=== PATIENT | female | born 2000 | race Caucasian/White ===

== ENCOUNTER 2022-01-09 21:02 | Emergency (ER) | payer OTHER, SELFPAY ==
[2022-01-09] VITALS (16 sets, daily range): BP systolic 107–114; BP diastolic 50–74; PULSE 81–119; RESP 13–23; TEMP 38.4; O2SAT 96–100
--- NOTE | ~2022-01-09 | XR_ITS ---
EXAMINATION: XR chest 1V Exam Date/Time: 01/09/2022 22:06 CDT HISTORY: Fever, eval for PNA Comparison: None available. RESULT: Lines, tubes, and devices: None. Lungs and pleura: Clear. Cardiomediastinal silhouette: Normal. Other: No acute osseous or upper abdominal finding. IMPRESSION: No acute cardiopulmonary process. Reviewed, dictated and finalized at location K.
--- NOTE | ~2022-01-09 | CT_ITS ---
EXAMINATION: CT brain wo con DATE: 01/09/2022 22:07 INDICATION: AMS, eval for intracranial mass . TECHNIQUE: Computed tomography (CT) of the head was performed without intravenous contrast. The mA wa s adjusted according to patient size. Iterative reconstruction technique was employed. The dose-lengt h product was 605.33 mGy-cm. COMPARISON: None FINDINGS: No acute intracranial hemorrhage or extra-axial fluid collection. No hydrocephalus, mass, or herniation. No acute ischemic infarct. Unremarkable dural venous sinus attenuation. No acute osseous abnormality. The aerated spaces are clear. IMPRESSION: No acute intracranial process. Reviewed, dictated and finalized at location K.
--- NOTE | 2022-01-09 21:49 | ECG_ITS ---
Measurements Intervals [place] Rate: 78 P: 52 GA: 199 QRS: 82 QRSD: 88 T: 38 QT: 370 QTc: 423 Interpretive Statements SINUS RHYTHM NONSPECIFIC T-WAVE ABNORMALITY Electronically Signed On 01-10-2022 11:38:44 CDT by Richard Arroyo M.D.
--- NOTE | 2022-01-09 21:56 | ED.FEVER ---
HPI - Fever General Chief Complaint: Fever Stated Complaint: Fever, confusion Time Seen by Provider: 01/09/22 21:33 History of Present Illness HPI Narrative: HPI limited due to altered mental status This is a 21-year-old female who presents to the emergency department for altered mental status and fever. She is known COVID-positive, per chart review patient's friend noted that she was confused and febrile. Patient states that she is in the hospital. But is unable to answer her other questions. Related Data Allergies Allergy/AdvReac Type Severity Reaction Status Date / Time cefdinir Allergy Rash Verified 01/09/22 23:07 Review of Systems Review of Systems: Review systems limited by altered mental status CONSTITUTIONAL: Fever, confusion NEUROLOGIC:headache Exam Narrative: GENERAL: Patient warm to touch, tearful, intermittent full body jerks noted HEAD: Normocephalic, atraumatic. EYES: PERRLA and EOMI. ENT: Nares clear, no rhinorrhea or epistaxis. Mucous membranes moist. Oropharynx without tonsillar hypertrophy exudate or other lesions. NECK: Supple. No adenopathy or masses. No carotid bruits or JVD, head impulse test negative CHEST: Clear to auscultation. No respiratory distress. No wheezes rales or rhonchi HEART: Tachycardic, regular rhythm no murmur heard. Normal peripheral pulses. ABDOMEN: Soft, nontender, nondistended, normal active bowel sounds. EXTREMITIES: Normal range of motion. No edema. SKIN: Warm, dry, no rash. NEURO: No focal deficits. Alert, unable to answer orientation questions Course Reevaluation(s) Reevaluation #1: 23:30 - Reassessed patient. She is now A&Ox4. She now states that she has had some cough over the past day and felt lightheaded. ThR last thing she remembers is speaking with her classmates earlier this afternoon. She now feels much better. She denies headache, neck stiffness, photophobia, nausea, or abdominal pain. Given the patient's significant improvement with fluids alone and otherwise unremarkable labs, I will hold antibiotics. My concern for meningitis is reduced. The patient is positive for COVID-19. I suspect her symptoms are related to that. We will repeat a dose of IV fluids and reassess. Reevaluation #2: 01:35 -reassessed patient. She states she feels significantly better. Patient is noted ambulating in the department with a steady gait. Repeat vital signs improved. Tachycardia resolved. Fever resolved. Will discharge home with primary care follow-up. Discussed findings and recommendations with the patient, who voiced understanding and is comfortable with the plan. Discussed return emergency precautions including signs/symptoms of respiratory distress and sepsis. Vital Signs Vital signs: Vital Signs Temperature 101.1 F H 01/09/22 21:08 Pulse Rate 119 H 01/09/22 21:08 Respiratory Rate 16 01/09/22 21:08 Blood Pressure 114/74 01/09/22 21:08 Pulse Oximetry 100 01/09/22 21:08 Temperature 98.8 F 01/10/22 00:59 Pulse Rate 90 01/10/22 00:56 Respiratory Rate 15 01/10/22 00:56 Blood Pressure 107/50 L 01/09/22 23:46 Pulse Oximetry 99 01/10/22 00:56 MDM - Fever MDM Narrative Medical decision making narrative: Plan: Sepsis protocol, antibiotics for meningitis, imaging, lumbar puncture, reassess Differential Diagnosis Differential diagnosis: Likely community acquired pneumonia, sepsis, influenza and other (COVID, meningitis, other) Lab Data Result diagrams: 01/09/22 23:00 01/09/22 23:00 Labs: Lab Results 01/09/22 01/09/22 01/09/22 Range/Units 23:00 23:00 23:00 WBC 4.4 L (4.5-10.0) K/mm3 RBC 4.39 (4.2-5.4) M/mm3 Hgb 12.7 (12.0-15.0) g/dL Hct 38.6 (37.0-47.0) % MCV 87.9 (80-100) fl MCH 28.9 (26-34) pg MCHC 32.9 (32-36) g/dl RDW 12.0 (11.5-14.5) % Plt Count 179 (150-375) k/mm3 MPV 10.5 H (7.4-10.4) fl Immature Gran % (Auto) 0.5 (0-0.5) % Neut
[2022-01-09] MEDS: LACTATED RINGERS 1,000 ML 999 ML IV CONT (23:06)
[2022-01-09 23:16] LABS: Basophils Percent Auto 0.7 % (0.2-1.2); Eosinophils Absolute Auto 0.1 K/mm3 (0-0.3); Eosinophils Percent Auto 1.1 % (0-4.4); Hematocrit 38.6 % (37.0-47.0); Hemoglobin 12.7 g/dL (12.0-15.0); Immature Granulocyte Absolute 0.02 K/mm3 (0.00-0.031); Immature Granulocyte Percent A 0.5 % (0-0.5); Lymphocytes Absolute Auto 0.57 K/mm3 (0.9-3.2); Lymphocytes Percent Auto 12.9 % (18.3-44.2); Mean Corpuscular HGB Conc 32.9 g/dl (32-36); Mean Corpuscular Hemoglobin 28.9 pg (26-34); Mean Corpuscular Volume 87.9 fl (80-100); Mean Platelet Volume 10.5 fl (7.4-10.4); Monocytes Absolute Auto 0.5 K/mm3 (0.1-0.6); Monocytes Percent Auto 10.9 % (2.6-8.5); Neutrophils Absolute Auto 3.3 K/mm3 (1.3-6.7); Neutrophils Percent Auto 73.9 % (45.5-73.1); Platelet Count Result 179 k/mm3 (150-375); Red Blood Count 4.39 M/mm3 (4.2-5.4); White Blood Count 4.4 K/mm3 (4.5-10.0)
[2022-01-09 23:29] LABS: Lactic Acid Reflex 0.7 mmol/L (0.7-2.0)
[2022-01-09 23:33] LABS: Alanine Aminotransferase 12 U/L (6-35); Albumin Level 4.5 g/dL (3.5-5.1); Alkaline Phosphatase 59 U/L (38-126); Anion Gap 11 mmol/L (8-16); Aspartate Amino Transferase 20 U/L (14-36); Bilirubin,Total 0.6 mg/dL (0.2-1.3); Blood Urea Nitrogen 13 mg/dL (7-17); CRP < 0.5 mg/dL (<1.0); Calcium 8.8 mg/dL (8.4-10.2); Carbon Dioxide 26 mmol/L (22-30); Chloride 101 mmol/L (98-107); Estimated CRCL calculation 88 ml/min; Estimated Glomerular Filt Rate > 60; Glucose 93 mg/dL (65-110); Sodium 138 mmol/L (137-145)
[2022-01-09 23:52] LABS: Influenza A QL RT-PCR Negative (Negative); Influenza B QL RT-PCR Negative (Negative); SARS-CoV-2 RNA PCR Positive
[2022-01-10 00:28] LABS: Appearance Urine Clear (Clear); Bilirubin Urine Negative (Negative); Blood Urine Negative (Negative); Color Urine Yellow (Yellow); Glucose Urine UA Negative (Negative); Ketones Urine Trace mg/dL (Negative); Leukocyte Esterase Ur 2+ LEU/UL (Negative); Nitrate Urine Negative (Negative); Protein Urine Negative (Negative); Urobilinogen Urine 0.2 mg/dL (<2.0)
[2022-01-10 00:34] LABS: Bacteria Urine Trace /hpf; Mucus Urine Rare /lpf; RBC Urine 0-2 /hpf (0-2); Squamous Epithelial Cell Urine Moderate /hpf (Few)
[2022-01-10 00:37] LABS: Add Urine Microscopic? YES
[2022-01-10 00:56] VITALS: PULSE 90; RESP 15; TEMP 37.1; O2SAT 99
[2022-01-10] MEDS: LACTATED RINGERS 1,000 ML 999 ML IV CONT (00:57)
[2022-01-10 00:59] VITALS: TEMP 37.1
[2022-01-10 02:20] VITALS: BP 102/69; PULSE 79; RESP 13; O2SAT 100
--- NOTE | 2022-01-10 02:33 | PC.NURSE ---
0210- RN called [facility] @[phone] to notify them that pt is being discharged and to please fiber picker at the ER entrance.
== END 2022-01-10 02:20 | disposition home or self-care (01) ==
PROVIDERS: Emergency Provider Preventive Medicine Aerospace Medicine
DX: U07.1 COVID-19 (principal); R41.82 Altered mental status, unspecified; E86.0 Dehydration
CPT/HCPCS: 36415; 70450; 71045; 80053; 81001; 83605; 85025; 85610; 85730; 86140; 87040; 87502; 93005; 96361; 96365; 96375; 99284; C9803; J0131; J1100; J7120; U0003; U0005